=== PATIENT | male | born 1965 | race Caucasian/White ===

== ENCOUNTER 2016-08-31 14:00 | Inpatient (IN) | payer OTHER ==
--- NOTE | ~2016-08-31 | DS ---
Unit #: [id number] #: [id number] [facility] [id number] [facility] [address] [place] [address] [id number] MR#: [id number] NAME: DIAN HAMLIN. ROOM: 81 Age: 51 Sex: M Admission Date: 08/31/2016 : 1965 Discharge Date: 09/04/2016 Attending Physician: Rowdy Martínez M.D. Primary Care Physician: Generic Doctor Not In System DISCHARGE SUMMARY IDENTIFYING DATA Mr. Hamlin is a 51-year-old white male with history of substance abuse who was self-referred to the hospital. DISCHARGE DIAGNOSES Psychiatric: Alcohol dependence, moderate and acute withdrawals; benzodiazepine dependence, moderate; alcohol-induced mood disorder. Medical: None. Stressors: Moderate psychosocial stressors. HISTORY OF PRESENT ILLNESS Please see initial psychiatric evaluation for details. PAST PSYCHIATRIC HISTORY Please see initial psychiatric evaluation for details. PAST MEDICAL HISTORY Please see initial psychiatric evaluation for details. HOSPITAL COURSE The patient was admitted to the adult chemical dependency unit at [facility] jody Johnson and was oriented to the hospital environment. Routine p.r.n. medications were initiated and he was started on the detox protocol from alcohol discontinue this and he did not like that and showed poor insight into his addictive potential and as such, it was decided that he will be discharge home and will continue on an outpatient basis. DISCHARGE CONDITION Stable. PROGNOSIS Guarded. Dictated by... Harley Middleton/jaswinder TD: 09/26/2016 14:12 JOB #: [id number] Unit #: [id number] #: [id number] Patient: DIAN HAMLIN DISCHARGE SUMMARY Page 1 of 1 X Rowdy Martínez MD X DISCHARGE SUMMARY
--- NOTE | ~2016-08-31 | PN ---
Unit #: [id number] #: [id number] Patient: DIAN RANGEL [id number] [facility] [address] [place] [address] [id number] MR#: [id number] NAME: DIAN RANEGL. ROOM: P181 Age: 51 Sex: M Admission Date: 08/31/2016 : 1965 Attending Physician: Rowdy Martínez M.D. Admitting Physician: Rowdy Martínez M.D. Primary Care Physician: Markos Doctor Not In System [facility] PROGRESS NOTES DATE September 03, 2016 DISCUSSION Mr. Rangel is a 51-year-old white male, who was seen today and chart was reviewed and the case was discussed with the staff. He has been anxious, withdrawn, and rather seclusive to himself but appears to be doing much better and it appears that he is not having any suicidal thoughts anymore. He has been taking the medications and tolerating them fairly well with no reported side effects. MENTAL STATUS EXAMINATION Middle-aged white male, who was casually dressed with fair personal hygiene and appears to be in no acute distress or discomfort. He was awake and alert on interaction with intact orientation. His mood is anxious with a congruent affect. He denies any suicidal or homicidal ideations. His insight and judgment remain slightly impaired. TREATMENT PLAN 1. We will continue him on his current medications and treatment protocol, and will monitor his response to the medications, and make further adjustments as needed. 2. We will continue to followup. Dictated by... Harley Middleton/tracy TD: 09/04/2016 05:23 JOB #: [id number] Unit #: [id number] #: [id number] Patient: DIAN RANGEL [facility] PROGRESS NOTES Page 1 of 1 X Rowdy Martínez MD PROGRESS NOTE
--- NOTE | ~2016-08-31 | CO ---
Unit #: [id number] #: [id number] Patient: DIAN HAMLIN [id number] [facility] [address] [place] [address] [id number] MR#: [id number] NAME: DIAN HAMLIN. ROOM: 81 Age: 51 Sex: M Admission Date: 08/31/2016 : 1965 Attending Physician: Rowdy Martínez M.D. Primary Care Physician: Generic Doctor Not In System Consultation Date: 09/02/2016 CONSULTATION REPORT ORDERING PROVIDER Dr. Martínez. REASON FOR CONSULT Rash on foot and tooth pain. SUBJECTIVE The patient reports that he has had a rash on his foot that comes and goes. He has been using workers' hands on it, which seems to help, but he has not been using it since he has been admitted. He reports that his feet get itchy, dry, flaky, and slightly irritated. He also complains of tooth pain, where he has a tooth broken off on the right side of his lower mouth. He does have a dentist. He was supposed to see him on , but was in the hospital instead. OBJECTIVE The patient is having dry, flaky rash consistent with eczema on bilateral feet. He also is noted to have poor dentition with several broken teeth on both upper and lower. No abscess is noted. ASSESSMENT 1. Eczema. 2. Tooth pain. PLAN Plan is to give the patient Hurricaine gel until he can see a dentist and start a steroid cream for his feet. Dictated by... Liyah Huizar A.P.R.N. for Harley Yeung/jaswinder TD: 09/02/2016 22:01 JOB #: [id number] Unit #: [id number] #: [id number] Patient: DIAN HAMLIN CONSULTATION REPORT Page 1 of 1 X LIYAH HUIZAR APRN CONSULTATION REPORT
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
--- NOTE | ~2016-08-31 | PN ---
Unit #: [id number] #: [id number] Patient: DIAN RANGEL [id number] [facility] [address] [place] [address] [id number] MR#: [id number] NAME: DIAN RANGEL. ROOM: P181 Age: 51 Sex: M Admission Date: 08/31/2016 : 1965 Attending Physician: Rowdy Martínez M.D. Admitting Physician: Rowdy Martínez M.D. Primary Care Physician: Markos Doctor Not In System [facility] PROGRESS NOTES REVISED REPORT DATE OF SERVICE: 09/02/2016 SUBJECTIVE Mrs. Rangel is a 51-year-old white male who was seen today and chart was reviewed, and case was discussed with the staff. He has been anxious, withdrawn, and rather seclusive to himself and reports persistent depressive symptoms and feelings of hopelessness and suicidal thoughts. Meanwhile, he has been taking the medications and tolerating them fairly well with no reported side effects. MENTAL STATUS EXAMINATION Middle-aged white male who was casually dressed with fair personal hygiene, appears to be in no acute distress or discomfort. He was awake and alert on interaction with intact orientation. His mood was anxious with a congruent affect. He reports having suicidal ideation, but denies any homicidal ideations. His insight and judgment . TREATMENT PLAN 1. We will continue him on his current medications and treatment protocol and we will monitor his response to medication and make further adjustments as needed. 2. We will continue to follow up. Dictated by... Harley Middleton/jaswinder TD: 09/02/2016 12:26 JOB #: [id number] Unit #: [id number] #: [id number] [facility] PROGRESS NOTES Page 1 of 1 X Rowdy Martínez MD PROGRESS NOTE
[2016-09-01 10:51] LABS: BASOPHIL# 0.1 X10e3 (0-0.3); BASOPHIL% 1.1 % (0-2.5); EOSINOPHIL# 0.3 X10e3 (0-0.7); HEMATOCRIT 48.1 % (38.0-50.0); HEMOGLOBIN 16.2 gm/dL (13.0-16.0); LYMPHOCYTE# 2.6 X10e3 (1.0-3.5); LYMPHOCYTE% 30.4 % (17.0-45.0); MEAN CORPUSCULAR HEMOGLOBIN 33.7 PG (28-34); MEAN CORPUSCULAR HGB CONC 33.7 g/dL (30-36); MEAN PLATELET VOLUME 7.9 FL (6.5-11.5); MONOCYTE# 0.9 X10e3 (0-1.0); MONOCYTE% 10.3 % (3.0-12.0); NEUTROPHIL# 4.6 X10e3 (1.5-7.1); NEUTROPHIL% 54.2 % (40-75); PLATELET COUNT 239 X10e3 (140-420); RED BLOOD COUNT 4.81 X10e (3.90-5.60); RED CELL DISTRIBUTION WIDTH 13.4 % (11.0-15.5); WHITE BLOOD COUNT 8.6 X10e3 (4.0-10.5)
[2016-09-01 11:02] LABS: DIFF IND NO
[2016-09-01 11:41] LABS: ALBUMIN SERUM 3.7 g/dL (3.5-5.0); BILIRUBIN,TOTAL 0.5 mg/dL (0.2-2.0); BUN/CREATININE RATIO 16.25; CALCIUM SERUM 9.3 mg/dL (8.4-10.2); CREATININE SERUM 0.8 mg/dL (0.6-1.4); GLOM FILT RATE Estimated 104.9 mL/min (>60); POTASSIUM 4.4 mmol/L (3.5-5.1); PROTEIN TOTAL SERUM 7.1 g/dL (6.0-8.3)
[2016-09-03 10:01] LABS: URINE APPEARANCE CLEAR; URINE BILIRUBIN NEG (NEG); URINE BLOOD NEG (NEG); URINE COLOR YELLOW; URINE GLUCOSE NEG (NEG); URINE KETONE NEG (NEG); URINE LEUKOCYTE ESTERASE NEG (NEG); URINE NITRATE NEG (NEG); URINE PH 5.5 (5-8); URINE PROTEIN NEG (NEG); URINE SPECIFIC GRAVITY 1.009 (1.003-1.035); URINE UROBILINOGEN 0.2 MG/DL (NEG)
[2016-09-03 10:06] LABS: AMPHETAMINE NEG (NEG); BARBITURATES NEG (NEG); BENZODIAZEPINES POS (NEG); COCAINE NEG (NEG); CULTURE INDICATED? NO; MARIJUANA NEG (NEG); OPIATES POS (NEG); TRICYCLIC ANTIDEPRESSANTS NEG (NEG); U METHADONE NEG (NEG)
== END 2016-09-04 08:53 | disposition home or self-care (01) | DRG 885 ==
LOC: P1E 20:30
PROVIDERS: Psychiatry & Neurology Psychiatry
DX: F33.1 Major depressive disorder, recurrent, moderate (principal); R45.851 Suicidal ideations; F17.210 Nicotine dependence, cigarettes, uncomplicated; K08.89 Other specified disorders of teeth and supporting structures; L30.9 Dermatitis, unspecified
CPT/HCPCS: 80053; 80307; 81003; 85025